=== PATIENT | female | born 1960 | race Caucasian/White ===

== ENCOUNTER → 2016-05-21 | Outpatient (CLI) | payer OTHER ==
[~2016-05-21] MED LIST: ACID CONTROL150 MG PO; DIFLUCAN100 MG PO; HYDROCHLOROTHIA25 MG PO; LOSARTAN POTASS50 MG PO; METFORMIN HCL1000 MG PO; METHOCARBAMOL750 MG PO; METOPROLOL SUC100 MG PO; NEURONTIN 300300 MG PO; NEXIUM20 MG PO; NORCO 5-325 TA1 EACH PO; PHENERGAN 25 MG25 M1 PO; ZYRTEC10 MG PO
== END ==
LOC: US 07:34
DX: R10.13 Epigastric pain (principal); R14.0 Abdominal distension (gaseous); K76.0 Fatty (change of) liver, not elsewhere classified
CPT/HCPCS: 36415; 76705; 82150; 83690

== ENCOUNTER → 2016-06-19 | Outpatient (CLI) | payer OTHER | LOC: NM 12:43 | DX: R10.13 Epigastric pain (principal); R14.0 Abdominal distension (gaseous); R93.2 Abnormal findings on diagnostic imaging of liver and biliary tract | CPT/HCPCS: 78227; A9537 ==

== ENCOUNTER → 2016-07-14 | Day surgery (SDC) | payer OTHER ==
[~2016-07-14] VITALS: Ht 165.1 cm; Wt 88.0 kg
== END | disposition home or self-care (01) ==
LOC: OR 09:46
PROVIDERS: Surgery
PROC: 0FT44ZZ Resection of Gallbladder, Percutaneous Endoscopic Approach (ICD-10-PCS; principal; 2016-07-14 12:55)
DX: K81.1 Chronic cholecystitis (principal); E11.42 Type 2 diabetes mellitus with diabetic polyneuropathy; G47.33 Obstructive sleep apnea (adult) (pediatric); G25.81 Restless legs syndrome; E11.9 Type 2 diabetes mellitus without complications; E78.00 Pure hypercholesterolemia, unspecified; G47.30 Sleep apnea, unspecified; I10 Essential (primary) hypertension; M19.90 Unspecified osteoarthritis, unspecified site; Z79.899 Other long term (current) drug therapy; Z79.891 Long term (current) use of opiate analgesic; Z98.51 Tubal ligation status; Z87.19 Personal history of other diseases of the digestive system; Z90.710 Acquired absence of both cervix and uterus; Z99.89 Dependence on other enabling machines and devices
CPT/HCPCS: 82962; J0295; J1100; J2250; J2405; J2710; J3010; J7030; J7050; J7120

== ENCOUNTER → 2020-02-26 | Outpatient (CLI) | payer OTHER ==
[~2020-02-26] MED LIST changes: +AMARYL 2MG TABLE2 MG PO; +CLOBETASOL OINTMENT TD; +HYDROCORT TD; +LIDOCAINE OINTMENT TD; +LOPRESSOR50 MG PO; +MYCOLOG II OINT15 GM TD; +OMEPRAZOLE20 MG PO; +VITAMIN D35000 UNI1 PO; +ZETIA 10 MG TAB10 MG PO
== END ==
LOC: US 09:24
DX: K76.0 Fatty (change of) liver, not elsewhere classified (principal)
CPT/HCPCS: 76700

== ENCOUNTER → 2021-04-08 | Outpatient (CLI) | payer OTHER | LOC: EXRD 08:35 | DX: K76.0 Fatty (change of) liver, not elsewhere classified (principal) | CPT/HCPCS: 76700 ==

== ENCOUNTER → 2021-04-15 | Day surgery (SDC) | payer OTHER | END | disposition home or self-care (01) | LOC: OR 05:56 | DX: Z12.11 Encounter for screening for malignant neoplasm of colon (principal); D12.0 Benign neoplasm of cecum; K57.30 Diverticulosis of large intestine without perforation or abscess without bleeding; K64.0 First degree hemorrhoids; K64.1 Second degree hemorrhoids; K64.4 Residual hemorrhoidal skin tags; E11.9 Type 2 diabetes mellitus without complications; I10 Essential (primary) hypertension; F17.220 Nicotine dependence, chewing tobacco, uncomplicated; Z86.010 Personal history of colon polyps; Z20.822 Contact with and (suspected) exposure to COVID-19 | CPT/HCPCS: 82962; J2704; J7040 ==

== ENCOUNTER → 2021-09-22 | Outpatient (CLI) | payer OTHER | LOC: KOH-I 11:40 | DX: M25.50 Pain in unspecified joint (principal) | CPT/HCPCS: 73562 ==